=== PATIENT | female | born 1985 | race Caucasian/White ===

== ENCOUNTER 2016-09-25 17:35 | Emergency (ER) | payer OTHER ==
[2016-09-25 17:48] VITALS: BP 103/72; PULSE 59; RESP 14; TEMP 98.2; O2SAT 98
[2016-09-25] MEDS ORDERED: CEPHALEXIN 500 MG CAP PO ONE (18:15)
--- NOTE | 2016-09-25 18:18 | UCPHY ---
H & P Time Seen by Provider: 09/25/16 18:10 Patient Type: Established HPI/ROS: This patient complains of painful lump in redness to her left breast. Current social history is notable for her breast-feeding her 6 month infant up now without any difficulties. Her symptoms started over the past 2 days it has been gradually increasing in discomfort-currently 6/10. She has not tried any analgesics for symptoms so far. She has not had this problem in the past. ROS: No fevers or other constitutional symptoms. GI: No nausea or vomiting cardiovascular: No lightheadedness. 5 point ROS is otherwise negative. Past Medical/Surgical History: Otherwise healthy Smoking Status: Never smoked Physical Exam: Physical Exam Vital signs are normal. General: No acute distress Eyes: Pupils equal and react to light. Extraocular motions are intact. Lungs: No respiratory distress. Breast exam performed with nurse at the bedside: Left breast has mild skin erythema warmth to touch and slight swelling between 6 and 9 o'clock. No fluctuance. Cardiac: Brisk capillary refill is intact throughout. Skin: No rash or pallor. Neuro: Alert and oriented x3 with no sensorimotor deficits. Constitutional: Initial Vital Signs Temperature (C) 36.8 C 09/25/16 17:43 Heart Rate 59 L 09/25/16 17:43 Respiratory Rate 14 09/25/16 17:43 Blood Pressure 103/72 09/25/16 17:43 O2 Sat (%) 98 09/25/16 17:43 O2 Delivery Mode Room Air Allergies/Adverse Reactions: No Known Allergies Allergy (Unverified 06/02/15 16:25) Home Medications: Medication Instructions Recorded Cephalexin [Keflex (*)] 500 mg PO QID #40 cap 09/25/16 MDM/Departure - MDM Medications Given: Discontinued Medications Cephalexin HCl (Keflex) 500 mg PO EDNOW ONE PRN Reason: Protocol Stop: 09/25/16 18:16 Last Admin: 09/25/16 18:25 Dose: 500 mg ED Course/Re-evaluation: Findings are consistent with mastitis. I counseled patient regarding this and she is treated with 1st dose of Keflex. She appears nontoxic and well. - Depart Disposition: Home, Routine, Self-Care Clinical Impression: Mastitis Instructions: Mastitis (ED) Additional Instructions: Diagnosis: Mastitis Plan: Apply warm packs regularly to 3 times a day until symptoms improve Tylenol or ibuprofen for discomfort as needed Keflex antibiotic. Take a probiotic or yogurt while on Keflex to prevent diarrhea. Return here or to an emergency department if he has any significant worsening despite the treatment plan Prescriptions: Cephalexin [Keflex (*)] 500 mg PO QID #40 cap Referrals: ONELIA KABA [Primary Care Provider] - As per Instructions - PQRS PQRS Measurement: NA
== END 2016-09-25 18:25 | disposition home or self-care (01) ==
LOC: CED 17:35
DX: N61.0 Mastitis without abscess (principal)
CPT/HCPCS: 99214-PO; G0463-PO